=== PATIENT | female | born 2000 | race Hispanic/Latino ===

== ENCOUNTER 2019-08-22 22:11 | Emergency (ER) | payer OTHER ==
[~2019-08-22] VITALS: Ht 154.9 cm; Wt 77.1 kg
--- NOTE | 2019-08-22 22:41 | Emergency Department Note ---
History of Present Illnes History of Present Illness Chief Complaint: Left knee and left low back pain History of Present Illness This is a 19 year old 20 week female with a 2 hour history of left knee pain and left-sided low back pain. The left knee pain occurred below the left patella and made it difficult for her to ambulate earlier this evening. The severe pain passed and it is now a dull ache. She denies any recent trauma or falling. She does recall and injury to this knee in 2018, when she fell down 5 steps. She states that she was on crutches for a while and then the pain resolved. She did not have any imaging performed at that time. She states that she may have re-injured in last year, when she stepped in a hole, with the left foot and twisted her knee. Historian: Patient Arrival Mode: Car Custody Assistant Required: No Onset (how long ago): hour(s) (2) Location: below left patella and left lower back Quality: sharp, stabbing Radiation: non-radiation Severity: moderate Onset quality: sudden Duration (how long): hour(s) (2) Timing of current episode: intermittent Progression: waxing and waning Chronicity: new Context: recent illness, recent surgery, recent immobilization, recent travel, trauma/injury Relieving factors: other (nothing) Exacerbating factors: other (walking) Associated symptoms: denies other symptoms Treatments prior to arrival: none Risk factors: 20 weeks Past Medical/Family History Physician Review I have reviewed the patient's past medical and family history. Any updates have been documented here. Past Medical History Recent Fever: No Clinical Suspicion of Infectio: No New/Unexplained Change in Ment: No Past Medical History: None Past Surgical History: None Social History Smoking Cessation: Never Smoker Alcohol Use: None Any Illegal Drug Use: No TB Exposure/Symptoms: No Physically hurt or threatened: No Family History Family history of heart diseas: No Other Any Pre-Existing Lines (PICC,: No Is patient up to date on immun: Yes Review of Systems Review of Systems Constitutional: no symptoms EENTM: no symptoms Cardiovascular: no symptoms Respiratory: no symptoms Gastrointestinal: no symptoms Genitourinary: no symptoms Musculoskeletal: back pain (left lower back), joint pain (lelft infrapatellar knee pain) Neurological: no symptoms Psychological: no symptoms Hematological/Lymphatic: no symptoms Review of other systems All other systems reviewed and negative. Physical Exam Related Data Allergies: Coded Allergies: No Known Allergies (Unverified , 08/22/19) Physical Exam CONSTITUTIONAL Constitutional: well-developed, well-nourished, other (20 weeks ) HENT HENT: normocephalic, atraumatic, oropharynx clear/moist, nose normal HENT L/R: left ext ear normal, right ext ear normal EYES Eyes: PERRL, conjunctivae normal NECK Neck: ROM normal PULMONARY Pulmonary: effort normal, breath sounds normal CARDIOVASCULAR Cardiovascular: regular rhythm, heart sounds normal, capillary refill normal, normal rate GASTROINTESTINAL GENITOURINARY SKIN Skin: warm, dry MUSCULOSKELETAL Musculoskeletal: tenderness (ttp of left patella tendon; no crepitus on passive ROM, no erythema, edema or warmth of knee, neg anterior drawer sign; Left lower lumbar paraspinal muscles ttp; ), swelling NEUROLOGICAL Neurological: alert, oriented x 3, no gross motor or sensory deficits PSYCHOLOGICAL Psychological: mood/affect normal, judgement normal Critical Care Time Subsequent provider I assumed direction of critical care for this patient from another provider of my specialty. Assessment & Plan Assessment & Plan Final Impression: (1) Patellar tendonitis of left knee (2) Low back pain during in second trimester (3) Assessment & Plan - Explained to patient that we are limited in the ER in evaluating pain that is chronic. She has had intermittent knee pain x 2 years, and had a flair of the pain today, so presented for evaluation. She denies any falling or recent trauma - Symptoms suggest patella tendonitis, that can be treated with ice, rest, ES Tylenol and Ibuprofen 600 mg, if ok with [employer] - pt is to check with them. - Discussed that LBP may be due to , with increased weight, change in center of gravity, and loss of core strength. This can be treated the same as the knee pain. - Pt is encouraged to f/u with [employer], if symptoms persist, so that they can refer to Orthopedics or PT, to help with symptoms relief. - Pt voiced understanding of the plan, and she has an appt. with her OB later this week, on 08/25/2019, where she will discuss reason for her ER visit this evening. Depart Disposition: HOME, SELF-CARE CRISTAL RAMON MD August 22, 2019 22:41
== END 2019-08-22 23:13 | disposition home or self-care (01) ==
LOC: FSED 22:11
DX: O26.92 Pregnancy related conditions, unspecified, second trimester (principal); M54.5 Low back pain; M76.52 Patellar tendinitis, left knee
CPT/HCPCS: 99282

== ENCOUNTER 2022-09-24 16:06 | Emergency (ER) | payer BC, OTHER ==
[~2022-09-24] VITALS: Ht 157.5 cm; Wt 84.1 kg
[2022-09-24] MEDS ORDERED: NAPROXEN250 MG PO (16:44)
[2022-09-24] MEDS ORDERED: TYLENOL325 MG PO (16:44)
[2022-09-24] MEDS ORDERED: KETOROLAC TROMETHAMINE 60 MG/2 ML VIAL ONE (16:54)
[2022-09-24] MEDS ORDERED: KETOROLAC TROMETHAMINE 60 MG/2 ML VIAL IM ONE (17:00)
[2022-09-24 18:01] VITALS: O2SAT 97
== END 2022-09-24 18:22 | disposition home or self-care (01) ==
LOC: FSED 16:13
DX: S00.83XA Contusion of other part of head, initial encounter (principal); R51.9 Headache, unspecified; M54.50 Low back pain, unspecified; M25.512 Pain in left shoulder; M25.552 Pain in left hip; M25.562 Pain in left knee; V43.53XA Car driver injured in collision with pick-up truck in traffic accident, initial encounter; Y92.488 Other paved roadways as the place of occurrence of the external cause
CPT/HCPCS: 70450; 72100; 72125; 81025; 96372; 99284; J1885